=== PATIENT | male | born 1990 | race African-American/Black ===

== ENCOUNTER 2017-08-09 10:42 | Emergency (ER) | payer BC, MEDICAID ==
[2017-08-09] MEDS ORDERED: ONDANSETRON HCL INJ/PF 4 MG/2 ML SDV IV ONE (11:48)
[2017-08-09] MEDS ORDERED: NORMAL SALINE 1000 ML 1,000 ML IV ONE (11:48)
[2017-08-09 12:26] LABS: HEMATOCRIT 46.9 % (37.9-51.0); HEMOGLOBIN 15.8 g/dL (13.5-17.0); MEAN CORPUSCULAR HEMOGLOBIN 27.7 pg (27.0-33.4); MEAN CORPUSCULAR HGB CONC 33.7 g/dL (32.0-36.0); MEAN CORPUSCULAR VOLUME 82 fl (80-97); PLATELET COUNT 290 10^3/uL (150-450); RED BLOOD COUNT 5.72 10^6/uL (4.35-5.55); RED CELL DISTRIBUTION WIDTH 14.1 % (11.5-14.0); WHITE BLOOD COUNT 12.2 10^3/uL (4.0-10.5)
[2017-08-09 12:47] LABS: ABSOLUTE LYMPHOCYTES# (MANUAL) 0.9 10^3/uL (0.5-4.7); ABSOLUTE MONOCYTES # (MANUAL) 0.9 10^3/uL (0.1-1.4); ABSOLUTE NEUTROPHILS# (MANUAL) 10.5 10^3/uL (1.7-8.2); ALANINE AMINOTRANSFERASE 34 U/L (21-72); ALBUMIN 5.3 g/dL (3.5-5.0); ALKALINE PHOSPHATASE 83 U/L (38-126); ANION GAP 17 (5-19); ASPARTATE AMINO TRANSFERASE 26 U/L (17-59); BASOPHILS % (MANUAL) 0 % (0-2); BILIRUBIN,DIRECT 0.2 mg/dL (0.0-0.4); BILIRUBIN,TOTAL 1.8 mg/dL (0.2-1.3); BLOOD UREA NITROGEN 24 mg/dL (7-20); CALCIUM 10.9 mg/dL (8.4-10.2); CARBON DIOXIDE 18 mmol/L (22-30); CHLORIDE 107 mmol/L (98-107); EOSINOPHILS % (MANUAL) 0 % (0-6); GLUCOSE 150 mg/dL (75-110); LIPASE 61.7 U/L (23-300); LYMPHOCYTES % (MANUAL) 7 % (13-45); MONOCYTES % (MANUAL) 7 % (3-13); POTASSIUM 3.9 mmol/L (3.6-5.0); SEGMENTED NEUTROPHILS % (MAN) 86 % (42-78); SODIUM 141.9 mmol/L (137-145); TOTAL CELLS COUNTED 100; TOTAL PROTEIN 9.3 g/dL (6.3-8.2)
[2017-08-09 12:48] LABS: HYPOCHROMASIA SLIGHT; POIKILOCYTOSIS 3+
[2017-08-09 12:50] LABS: TOXIC GRANULATION SLIGHT; TOXIC VACUOLATION PRESENT
[2017-08-09 12:51] LABS: OVALOCYTES 3+; PLATELET COMMENT ADEQUATE; ROULEAUX SLIGHT
[2017-08-09 13:01] LABS: APPEARANCE,URINE SLIGHTLY-CLOUDY; BILIRUBIN,URINE NEGATIVE (NEGATIVE); COLOR,URINE YELLOW; GLUCOSE, URINE NEGATIVE (NEGATIVE); KETONES,URINE 20 mg/dL (NEGATIVE); LEUKOCYTE ESTERASE,URINE NEGATIVE (NEGATIVE); NITRITE,URINE NEGATIVE (NEGATIVE); PROTEIN,URINE 30 mg/dL (NEGATIVE); URINE SPECIFIC GRAVITY 1.033; UROBILINOGEN,URINE NEGATIVE mg/dL (<2.0)
--- NOTE | 2017-08-09 14:22 | ER Document Report ---
ED General - General Chief Complaint: Nausea/Vomiting/Diarrhea Stated Complaint: VOMITING Time Seen by Provider: 08/09/17 11:48 Information source: Patient, Relative TRAVEL OUTSIDE OF THE [place] IN LAST 30 DAYS: No - HPI Patient complains to provider of: Nausea vomiting diarrhea Onset: This morning - 0400. PT. states he ate at [employer] he had appetizer including jalapeno poppers, no wedges and barbecue chicken. He states his friends complained about the food but he was hungry so he ate it. Severity: Moderate Pain Level: 2 Context: Diffuse crampy abdominal pain associated with diarrhea and vomiting Associated symptoms: None. denies: Fever Exacerbated by: Other - Patient attempted Gatorade prior to arrival and he vomited that up Relieved by: Denies Similar symptoms previously: No Recently seen / treated by doctor: No - Related Data Allergies/Adverse Reactions: No Known Allergies Allergy (Unverified 08/09/17 10:43) Past Medical History - General Information source: Patient, Relative - Social History Smoking Status: Never Smoker Frequency of alcohol use: None Drug Abuse: None Lives with: Family Family History: None Patient has suicidal ideation: No Patient has homicidal ideation: No - Medical History Medical History: Negative Renal/ Medical History: Denies: Hx Peritoneal Dialysis Past Surgical History: Reports: None Review of Systems - Review of Systems Constitutional: No symptoms reported EENT: No symptoms reported Cardiovascular: No symptoms reported Respiratory: No symptoms reported Gastrointestinal: See HPI Genitourinary: No symptoms reported Male Genitourinary: No symptoms reported Musculoskeletal: No symptoms reported Skin: No symptoms reported Hematologic/Lymphatic: No symptoms reported Neurological/Psychological: No symptoms reported Physical Exam - Vital signs Vitals: Temp Pulse Resp BP Pulse Ox 98.2 F 96 16 127/88 H 100 08/09/17 10:46 08/09/17 10:46 08/09/17 10:46 08/09/17 10:46 08/09/17 10:46 - Notes Notes: PHYSICAL EXAMINATION: GENERAL: Well-appearing, well-nourished and in no acute distress. HEAD: Atraumatic, normocephalic. EYES: Pupils equal round and reactive to light, extraocular movements intact, sclera anicteric, conjunctiva are normal. ENT: Nares patent, oropharynx clear without exudates. Moist mucous membranes. NECK: Normal range of motion, supple without lymphadenopathy LUNGS: Breath sounds clear to auscultation bilaterally and equal. No wheezes rales or rhonchi. HEART: Regular rate and rhythm without murmurs ABDOMEN: Soft, nontender, nondistended abdomen. No guarding, no rebound. No masses appreciated. Musculoskeletal: Normal range of motion, no pitting or edema. No cyanosis. NEUROLOGICAL: Cranial nerves grossly intact. Normal speech, normal gait. Normal sensory, motor exams PSYCH: Normal mood, normal affect. SKIN: Warm, Dry, normal turgor, no rashes or lesions noted. Course - Re-evaluation Re-evalutation: 08/09/17 14:21 Patient is sitting up in his bed. His significant other is sitting next to him. He is drinking benito and eating crackers without difficulty. Did talk to the patient regarding reasons to return including but not limited to abdominal pain returns, intractable vomiting or diarrhea, high fevers or any other concerns. States he is hungry he was discharged home in stable condition I did give him Zofran prescription. - Vital Signs Vital signs: Temp Pulse Resp BP Pulse Ox 98.2 F 96 16 127/88 H 100 08/09/17 10:46 08/09/17 10:46 08/09/17 10:46 08/09/17 10:46 08/09/17 10:46 - Laboratory Result Diagrams: 08/09/17 12:08 08/09/17 12:08 Laboratory results interpreted by me: 08/09/17 08/09/17 08/09/17 12:08 12:08 12:28 WBC 12.2 H RBC 5.72 H RDW 14.1 H Seg Neuts % (Manual) 86 H Lymphocytes % (Manual) 7 L Abs Neuts (Manual) 10.5 H Carbon Dioxide 18 L BUN 24 H Glucose 150 H Calcium 10.9 H Total Bilirubin 1.8 H Total Protein 9.3 H Albumin 5.3 H Urine Protein 30 H Urine Ketones 20 H Discharge - Discharge Clinical Impression: Nausea and vomiting in adult, Diarrhea, Leukocytosis, unspecified Disposition: HOME, SELF-CARE Instructions: Antinausea Medication ([facility]), Vomiting ([facility]), Diarrhea, Nonspecific ([facility]) Additional Instructions: Return to the emergency department if you are unable to tolerate fluids, you have high fevers, intractable diarrhea, abdominal pain or any other concerns. Follow-up the primary medical doctor in the next 1-2 days or call the care clinic for an appointment. Prescriptions: Ondansetron [Zofran Odt 4 mg Tablet] 1 - 2 tab PO Q4H PRN #15 tab.rapdis PRN Reason: For Nausea/Vomiting
--- NOTE | 2017-08-09 15:25 | ER Document Report ---
Doctor's Note Notes: 08/09/17 15:20 Patient has not been discharge yet. He has no emesis in the ED after eating benito and crackers approximately 1 hour ago. I did speak to the nurse and asked her to please discharge the patient.
[2017-08-09 15:32] VITALS: BP 132/76
== END 2017-08-09 15:32 | disposition home or self-care (01) ==
LOC: ER 10:42
DX: R11.2 Nausea with vomiting, unspecified (principal); R19.7 Diarrhea, unspecified; R10.84 Generalized abdominal pain; D72.829 Elevated white blood cell count, unspecified
CPT/HCPCS: 99283; 96361; 96374; 36415; 83690; 85025; 80053; 81001; J2405; J7030